=== PATIENT | male | born 1990 | race Caucasian/White ===

== ENCOUNTER 2022-03-30 01:56 | Emergency (ER) | payer OTHER ==
[2022-03-30 02:12] VITALS: BP 135/90; PULSE 66; BMI 25.1
[2022-03-30] MEDS ORDERED: DIPHTH,PERTUSS(ACELL),TET 0.5 ML DISP.SYRIN IM ONE ×2 (02:23→02:44)
[2022-03-30 03:10] LABS: BASO % 0.7 % (0-2.0); EOS % 1.5 % (0-4.5); HEMATOCRIT 42.1 % (35.4-49); HEMOGLOBIN 14.1 GM/dL (11.7-16.9); LYMPH % 18.4 % (8-40); MCH 29.9 pg (25.7-33.7); MCHC 33.6 g/dl (32.0-35.9); MEAN CELL VOLUME 89.1 fl (80-96); MEAN PLT VOLUME 7.7 fl (7.5-11.1); MONO % 5.3 % (3.8-10.2); NEUT % 74.1 % (42.8-82.8); PLATELET COUNT 289 10^3/uL (134-434); RBC 4.72 M/mm3 (4.00-5.60); RDW 13.5 % (11.9-15.9); WHITE BLOOD COUNT 9.6 K/mm3 (4.0-10.0)
[2022-03-30 03:17] LABS: INR 1.08 (0.83-1.09); PROTHROMBIN TIME (PATIENT) 12.4 SEC (9.7-13.0)
[2022-03-30 03:23] LABS: CALCIUM 8.9 mg/dL (8.5-10.1)
[2022-03-30 03:24] LABS: ALBUMIN 3.7 g/dl (3.4-5.0); BLOOD UREA NITROGEN 9.7 mg/dL (7-18)
[2022-03-30 03:27] LABS: CREATININE 0.9 mg/dL (0.55-1.3)
[2022-03-30 03:28] LABS: TOT PROT 6.8 g/dl (6.4-8.2)
[2022-03-30 03:29] LABS: BILIRUBIN,TOTAL 0.4 mg/dL (0.2-1)
== END 2022-03-30 03:47 | disposition left against medical advice (07) ==
LOC: JER 01:56
PROC: 3E0234Z Introduction of Serum, Toxoid and Vaccine into Muscle, Percutaneous Approach (ICD-10-PCS; principal; 2022-03-30)
DX: S01.419A Laceration without foreign body of unspecified cheek and temporomandibular area, initial encounter (principal); W22.09XA Striking against other stationary object, initial encounter; V86.56XA Driver of dirt bike or motor/cross bike injured in nontraffic accident, initial encounter
CPT/HCPCS: 36415; 70450-TC; 70486-TC; 72125-TC; 80053; 85025; 85610; 90715; 99285-25

== ENCOUNTER 2022-04-19 11:24 | Emergency (ER) | payer OTHER ==
[2022-04-19 12:01] VITALS: BP 130/76; PULSE 61; TEMP 98.5; BMI 20.7
== END 2022-04-19 14:03 | disposition home or self-care (01) ==
LOC: JER 11:24 → JERFT 11:24
DX: Z48.02 Encounter for removal of sutures (principal)
CPT/HCPCS: 99281-25

== ENCOUNTER 2022-07-04 13:35 | Emergency (ER) | payer OTHER ==
[2022-07-04 13:40] VITALS: BP 110/68; PULSE 80; RESP 18; TEMP 98.5; BMI 22.1
[2022-07-04] MEDS ORDERED: BACITRACIN 15 GM TUBE TOPICAL OINTMENT ONE (14:03)
== END 2022-07-04 14:18 | disposition home or self-care (01) ==
LOC: JERFT 13:35
DX: S21.212A Laceration without foreign body of left back wall of thorax without penetration into thoracic cavity, initial encounter (principal); X99.1XXA Assault by knife, initial encounter; Z48.02 Encounter for removal of sutures
CPT/HCPCS: 99281-25